=== PATIENT | female | born 1950 | race Caucasian/White ===

== ENCOUNTER → 2020-06-05 | Outpatient (CLI) | payer MEDICARE | END | disposition home or self-care (01) | LOC: RAH 09:29 | PROVIDERS: ATTEND Family Medicine | DX: R51.9 Headache, unspecified (principal) | CPT/HCPCS: 70544 ==

== ENCOUNTER → 2020-06-29 | Outpatient (CLI) | payer MEDICARE | END | disposition home or self-care (01) | LOC: RAH 10:37 | PROVIDERS: ATTEND Family Medicine | DX: M47.812 Spondylosis without myelopathy or radiculopathy, cervical region (principal); M50.21 Other cervical disc displacement, high cervical region; M50.223 Other cervical disc displacement at C6-C7 level | CPT/HCPCS: 72141 ==